=== PATIENT | male | born 1965 | race Caucasian/White ===

== ENCOUNTER 2016-10-29 12:18 | Inpatient (IN) | payer OTHER ==
[~2016-10-29] VITALS: Ht 182.9 cm; Wt 90.7 kg
--- NOTE | 2016-10-29 12:27 | NUR ---
PT TO ED FOR ABD PAIN SINCE WEDNESDAY MORNING, DENIES NAUSEA, VOMITING, REPORTING ONE EPISODE OF DIARRHEA "A FEW DAYS AGO". REPORTING NORMAL PO INTAKE, STATING ABD PAIN BEGAN TO FEEL BETTER THIS MORNING BUT IS NOW DESCRIBING PAIN "CRAMPY."
--- NOTE | 2016-10-29 12:31 | ED GI/GU/ABDOMINAL COMPLAINT ---
History of Present Illness General Chief Complaint: Abdominal Pain/Flank Pain Stated Complaint: R LOWER ABD PAIN SINCE 09/24 Source: patient, family, old records Exam Limitations: no limitations Vital Signs & Intake/Output Vital Signs & Intake/Output Vital Signs Date Time Temp Pulse Resp B/P B/P Pulse O2 O2 Flow FiO2 Mean Ox Delivery Rate 10/29 1447 100.4 85 18 117/71 99 10/29 1227 98.6 79 15 121/84 100 Room Air Allergies Coded Allergies: No Known Allergies (10/29/16) Reconcile Medications Meloxicam 7.5 MG TABLET 1 TAB PO DAILY PAIN (Reported) Pantoprazole Sodium 40 MG TABLET.DR 1 TAB PO DAILY GI (Reported) Triage Note: PT TO ED FOR ABD PAIN SINCE WEDNESDAY MORNING, DENIES NAUSEA, VOMITING, REPORTING ONE EPISODE OF DIARRHEA "A FEW DAYS AGO". REPORTING NORMAL PO INTAKE, STATING ABD PAIN BEGAN TO FEEL BETTER THIS MORNING BUT IS NOW DESCRIBING PAIN "CRAMPY." Triage Nurses Notes Reviewed? yes HPI: Patient is a 51-year-old male sent in by his primary doctor for evaluation of right lower quadrant pain. Pain present for approximately 3 days. Pain is a cramping sensation that worsens with coughing and sneezing. Pain is currently mild to moderate. Associated low-grade fevers. The patient had one episode of diarrhea 2 days ago. Normal bowel movement this morning. Patient last ate approximately 30 minutes prior to arrival, eating did not change the patient's pain. Patient says primary doctor, Dr. Solares, this morning [facility]. Patient denies vomiting, urinary symptoms. (CAMERON GARSIA) Past History Travel History Traveled to [place] past 21 day No Medical History Any Pertinent Medical History? see below for history Neurological: NONE EENT: NONE Cardiovascular: NONE Respiratory: NONE Gastrointestinal: GERD, internal hemorrhoid Hepatic: NONE Renal: NONE Musculoskeletal: ARTHRITIS Psychiatric: NONE Endocrine: NONE Blood Disorders: NONE Cancer(s): NONE Surgical History Surgical History: colonoscopy 07/2014, orthopedic surgery Psychosocial History What is your primary language Eritrean Tobacco Use: Never used ETOH Use: daily 1-2 drinks Illicit Drug Use: denies illicit drug use Family History Hx Contributory? No (CAMERON GARSIA) Review of Systems Review of Systems Constitutional: Reports: fever. Denies: chills. EENTM: Reports: no symptoms. Respiratory: Denies: cough, short of breath. Cardiovascular: Denies: chest pain. GI: Reports: see HPI. Genitourinary: Reports: no symptoms. Musculoskeletal: Denies: back pain. Skin: Reports: no symptoms. Neurological/Psychological: Reports: no symptoms. Hematologic/Endocrine: Reports: no symptoms. Immunologic/Allergic: Reports: no symptoms. (CAMERON GARSIA) Physical Exam Physical Exam General Appearance: well developed/nourished, alert, awake Head: atraumatic, normal appearance Eyes: Bilateral: normal appearance, PERRL, EOMI, normal inspection. Ears, Nose, Throat, Mouth: hearing grossly normal, moist mucous membrane Neck: normal inspection, supple, full range of motion Respiratory: normal breath sounds, no respiratory distress, lungs clear Cardiovascular: regular rate/rhythm Gastrointestinal: normal bowel sounds, soft, positive McBurney's point tenderness. Negative Loaiza's sign. Back: normal inspection, normal range of motion, no cva tenderness Extremities: normal range of motion Neurologic/Psych: no motor/sensory deficits, awake, alert, oriented x 3, normal gait, normal mood/affect Skin: intact, normal color, warm/dry Core Measures ACS in differential dx? No Severe Sepsis Present: No Septic Shock Present: No (CAMERON GARSIA) Progress Differential Diagnosis: appendicitis, biliary colic, cholecystitis, diverticulitis, gastritis, hepatitis, hernia, ischemic bowel, inflamm bowel dis, pancreatitis, prostatitis, perforated viscous, ureterolithiasis, urethritis, UTI /pyelo Plan of Care: Orders Procedure Date/time Status Add-on Test (ER Only) 10/29 1506 Active EKG 10/29 1506 Active TYPE & SCREEN (NOT X-MATCH) 10/29 1248 Complete URINALYSIS 10/29 1237 Complete PARTIAL THROMBOPLASTIN TIME 10/29 1237 Complete PROTHROMBIN TIME 10/29 1237 Complete LIPASE 10/29 1237 Complete COMPREHENSIVE METABOLIC PANEL 10/29 1237 Complete CBC WITHOUT DIFFERENTIAL 10/29 1237 Complete Laboratory Tests 10/29/16 1325: Urine Color YEL, Urine Clarity HAZY H, Urine pH 6.0, Ur Specific [place] 1.020, Urine Protein TRACE H, Urine Ketones TRACE H, Urine Nitrite NEG, Urine Bilirubin NEG, Urine Urobilinogen 0.2, Ur Leukocyte Esterase NEG, Ur Microscopic SEDIMENT EXAMINED, Urine RBC >75 H, Urine WBC RARE, Urine Mucus MOD H, Urine Hemoglobin LARGE H, Urine Glucose NEG 10/29/16 1248: Anion Gap 12, Estimated GFR > 60, BUN/Creatinine Ratio 17.3, Glucose 125 H, Calcium 8.8, Total Bilirubin 1.0, AST 17, ALT 31, Alkaline Phosphatase 54, Total Protein 6.9, Albumin 3.9, Globulin 3.0, Albumin/Globulin Ratio 1.3, Lipase 39, CBC w Diff NO MAN DIFF REQ, RBC 4.80, MCV 89.0, MCH 30.0, RDW 13.3, MPV 7.7, Gran % 82.8 H, Lymphocytes % 8.4 L, Monocytes % 7.1, Eosinophils % 1.4, Basophils % 0.3, Absolute Granulocytes 6.4, Absolute Lymphocytes 0.7 L, Absolute Monocytes 0.6, Absolute Eosinophils 0.1, Absolute Basophils 0, PUBS MCHC 33.8 10/29/16 1237: PT 12.5, INR 1.19 H, APTT 34 Patient declined pain medication or anti-nausea medication on initial exam 10/29/2016 1:39:53 PM: Patient resting comfortably. Results of labs discussed with patient. Patient awaiting CT scan. 10/29/2016 3:07:59 PM: Results discussed with radiology. IV Unasyn ordered. Results discussed with the patient. On-call surgery paged, Dr. Riggs presntly in the OR. Surgical JAI Dupont notified of patient and results. (MARKO VERGARA,CAMERON) Diagnostic Imaging: Viewed by Me: CT Scan. Discussed w/RAD: CT Scan. Radiology Impression: PATIENT: NEGRO JENNINGS PRESENT AGE: 51 PATIENT ACCOUNT NO: [id number] : 67 LOCATION: [facility] ORDERING PHYSICIAN: CAMERON VERGARA SERVICE DATE: 10/29/16 EXAM TYPE: CAT - CT ABD & PELVIS W IV CONTRAST EXAMINATION: CT ABDOMEN AND PELVIS WITH CONTRAST CLINICAL INFORMATION: Right lower quadrant pain and McBurney sign. COMPARISON: None. TECHNIQUE: Multidetector volumetric imaging was performed of the abdomen and pelvis before and after the IV administration of 94 mL of Optiray 320 intravenous contrast. No note is made of an adverse contrast reaction. Sagittal and coronal reformatted images were obtained on the technologist's workstation. DLP: 364 mGy-cm FINDINGS: LUNG BASES: Unremarkable. LIVER, GALLBLADDER, AND BILIARY TREE: Tiny, under 1 cm hypodensity identified superiorly in segment 4A of the left lobe of liver, too small to characterize, likely a tiny cyst. What appears to represent the gallbladder is severely contracted, without evidence of cholelithiasis or acute cholecystitis. PANCREAS: Unremarkable. SPLEEN: Unremarkable. ADRENAL GLANDS: Unremarkable. KIDNEYS AND URETERS: There are a few scattered low-density renal lesions, the largest in lower pole right kidney, with Hounsfield units 11-16. Otherwise unremarkable. BLADDER: Unremarkable. GASTROINTESTINAL TRACT: There is a small sliding hiatal hernia. The appendix is distended proximally greater than distally with exaggerated wall enhancement and moderate surrounding soft tissue stranding, most consistent with an acute appendicitis. There is no evidence of rupture at this point, however, the proximal appendix measures 1.8 cm in cross-section, thus immediate surgical consultation is recommended, if not already requested. The terminal ileum is collapsed, limiting evaluation, extending into the deep pelvis. ABDOMINAL WALL: Intact, no significant hernias. LYMPH NODES: No adenopathy. VASCULAR: Unremarkable. PELVIC VISCERA: Unremarkable, with the exception of the inflamed appendix as noted above. OSSEOUS STRUCTURES: Unremarkable. IMPRESSION: 1. Tiny, probable hepatic and multiple probable renal cysts. 2. Acute appendicitis. DICTATED BY: VIET REBOLLEDO MD DATE/TIME DICTATED:10/29/161438 TRUSS DESIGNER:JARRED DATE/TIME TRANSCRIBED:10/29/161438 CONFIDENTIAL, DO NOT COPY WITHOUT APPROPRIATE AUTHORIZATION. <Electronically signed in Other Vendor System> SIGNED BY: VIET REBOLLEDO MD 10/29/16 9778 Initial ED EKG: normal axis, normal intervals, normal p-waves, normal QRS complex, normal sinus rhythm, no ST T wave changes (CAMERON GARSIA) Departure Departure Disposition: STILL A PATIENT Condition: Stable Clinical Impression Primary Impression: Acute appendicitis Referrals: RYNE SOLARES MD (PCP/Family) Departure Forms: Customer Survey General Discharge Information OR/GI Note Spoke With: VIVIAN SHIPLEY,NURY Best. ED Treatment Decision: NEGRO JENNINGS requires urgent operative management or an emergent procedure that cannot be performed in the Emergency Room setting. Transport To: [facility] (CAMERON GARSIA) PA/HOP GROWER Co-Sign Statement Statement: ED Attending supervision documentation- [x] I saw and evaluated the patient. I have also reviewed all the pertinent lab results and diagnostic results. I agree with the findings and the plan of care as documented in the PA's/HOP GROWER's documentation. [] I have reviewed the ED Record and agree with the PA's/HOP GROWER's documentation. [] Additions or exceptions (if any) to the PAs/HOP GROWER's note and plan are summarized below: [] (JOSE NIEVES DO) [x] I saw and evaluated the patient. I have also reviewed all the pertinent lab results and diagnostic results. I agree with the findings and the plan of care as documented in the PA's/HOP GROWER's documentation. [] I have reviewed the ED Record and agree with the PA's/HOP GROWER's documentation. [] Additions or exceptions (if any) to the PAs/HOP GROWER's note and plan are summarized below: [] (JOSE NIEVES DO)
[2016-10-29] MEDS ORDERED: PANTOPRAZOLE SO40 M1 PO (12:52)
[2016-10-29] MEDS ORDERED: MELOXICAM7.5 M1 PO (12:52)
[2016-10-29 12:57] LABS: ABSOLUTE BASOPHIL COUNT 0 /CUMM (0.0-0.2); ABSOLUTE EOSINOPHIL COUNT 0.1 /CUMM (0.0-0.7); ABSOLUTE GRANULOCYTE CT 6.4 /CUMM (1.4-6.5); ABSOLUTE LYMPH COUNT 0.7 /CUMM (1.2-3.4); ABSOLUTE MONOCYTE COUNT 0.6 /CUMM (0.10-0.60); BASOPHIL % 0.3 % (0.0-2.0); EOSINOPHIL % 1.4 % (0-5); GRANULOCYTE % 82.8 % (42.2-75.2); HEMATOCRIT 42.7 % (42-52); MEAN CORPUSCULAR HGB CONC 33.8 G/DL (33.0-37.0); MEAN PLATELET VOLUME 7.7 FL (7.4-10.4); PLATELET COUNT 221 /CUMM (130-400); RBC DISTRIBUTION WIDTH 13.3 % (11.5-14.5); WHITE BLOOD CELL COUNT 7.8 /CUMM (4.8-10.8)
--- NOTE | 2016-10-29 13:26 | NUR ---
URINE TRIO SENT TO LAB.
--- NOTE | 2016-10-29 13:43 | NUR ---
PT RESTING ON STRETCHER, STATES THAT HE WENT TO HIS PMD DUE TO HE HAS BEEN HAVING RLQ PAIN SINCE WEDNESDAY, DENIES N/V/D/URINARY SYMPTOMS, COMPLAINS OF INTERMITTANT FEVERS . LBM TODAY AND NORMAL, LAST 8 ABOUT 1.5 HOURS AGO.
--- NOTE | 2016-10-29 13:49 | NUR ---
PT TO CT SCAN
--- NOTE | 2016-10-29 13:59 | NUR ---
PT RETURNED FROM CT SCAN.
--- NOTE | 2016-10-29 15:00 | NUR ---
UNASYN INFUSING PER EMADionicio. JAI ZHU AT BEDSIDE TO DISCUSS TEST RESULTS AND POC.
--- NOTE | 2016-10-29 15:22 | NUR ---
SURGICAL PA TO BEDSIDE FOR EVAL.
[2016-10-29 15:31] LABS: PT 12.5 SEC (9.4-12.5); PTT 34 SEC (25-37)
--- NOTE | 2016-10-29 15:45 | CT SCAN REPORT ---
EXAMINATION: CT ABDOMEN AND PELVIS WITH CONTRAST CLINICAL INFORMATION: Right lower quadrant pain and McBurney sign. COMPARISON: None. TECHNIQUE: Multidetector volumetric imaging was performed of the abdomen and pelvis before and after the IV administration of 94 mL of Optiray 320 intravenous contrast. No note is made of an adverse contrast reaction. Sagittal and coronal reformatted images were obtained on the technologist's workstation. DLP: 364 mGy-cm FINDINGS: LUNG BASES: Unremarkable. LIVER, GALLBLADDER, AND BILIARY TREE: Tiny, under 1 cm hypodensity identified superiorly in segment 4A of the left lobe of liver, too small to characterize, likely a tiny cyst. What appears to represent the gallbladder is severely contracted, without evidence of cholelithiasis or acute cholecystitis. PANCREAS: Unremarkable. SPLEEN: Unremarkable. ADRENAL GLANDS: Unremarkable. KIDNEYS AND URETERS: There are a few scattered low-density renal lesions, the largest in lower pole right kidney, with Hounsfield units 11-16. Otherwise unremarkable. BLADDER: Unremarkable. GASTROINTESTINAL TRACT: There is a small sliding hiatal hernia. The appendix is distended proximally greater than distally with exaggerated wall enhancement and moderate surrounding soft tissue stranding, most consistent with an acute appendicitis. There is no evidence of rupture at this point, however, the proximal appendix measures 1.8 cm in cross-section, thus immediate surgical consultation is recommended, if not already requested. The terminal ileum is collapsed, limiting evaluation, extending into the deep pelvis. ABDOMINAL WALL: Intact, no significant hernias. LYMPH NODES: No adenopathy. VASCULAR: Unremarkable. PELVIC VISCERA: Unremarkable, with the exception of the inflamed appendix as noted above. OSSEOUS STRUCTURES: Unremarkable. IMPRESSION: 1. Tiny, probable hepatic and multiple probable renal cysts. 2. Acute appendicitis.
--- NOTE | 2016-10-29 16:08 | NUR ---
PT TO OR AT THIS TIME.
--- NOTE | 2016-10-29 19:12 | Admission Core Measures ---
Admission Lab Results I reviewed the following labs: Laboratory Tests 10/29 10/29 1325 1248 Chemistry Sodium (137 - 145 mmol/L) 138 Potassium (3.5 - 5.1 mmol/L) 4.1 Chloride (98 - 107 mmol/L) 102 Carbon Dioxide (22 - 30 mmol/L) 24 Anion Gap (5 - 16) 12 BUN (9 - 20 mg/dL) 19 Creatinine (0.7 - 1.2 mg/dL) 1.1 Estimated GFR (>60 ml/min) > 60 BUN/Creatinine Ratio (7 - 25 %) 17.3 Glucose (65 - 99 mg/dL) 125 H Calcium (8.4 - 10.2 mg/dL) 8.8 Total Bilirubin (0.2 - 1.3 mg/dL) 1.0 AST (17 - 59 U/L) 17 ALT (21 - 72 U/L) 31 Alkaline Phosphatase (< 127 U/L) 54 Total Protein (6.3 - 8.2 g/dL) 6.9 Albumin (3.5 - 5.0 g/dL) 3.9 Globulin (1.9 - 4.2 gm/dL) 3.0 Albumin/Globulin Ratio (1.1 - 2.2 %) 1.3 Lipase (23 - 300 U/L) 39 Hematology CBC w Diff NO MAN DIFF REQ WBC (4.8 - 10.8 /CUMM) 7.8 RBC (4.70 - 6.10 /CUMM) 4.80 Hgb (14.0 - 18.0 G/DL) 14.4 Hct (42 - 52 %) 42.7 MCV (80.0 - 94.0 FL) 89.0 MCH (27.0 - 31.0 PG) 30.0 RDW (11.5 - 14.5 %) 13.3 Plt Count (130 - 400 /CUMM) 221 MPV (7.4 - 10.4 FL) 7.7 Gran % (42.2 - 75.2 %) 82.8 H Lymphocytes % (20.5 - 51.1 %) 8.4 L Monocytes % (1.7 - 9.3 %) 7.1 Eosinophils % (0 - 5 %) 1.4 Basophils % (0.0 - 2.0 %) 0.3 Absolute Granulocytes (1.4 - 6.5 /CUMM) 6.4 Absolute Lymphocytes (1.2 - 3.4 /CUMM) 0.7 L Absolute Monocytes (0.10 - 0.60 /CUMM) 0.6 Absolute Eosinophils (0.0 - 0.7 /CUMM) 0.1 Absolute Basophils (0.0 - 0.2 /CUMM) 0 PUBS MCHC (33.0 - 37.0 G/DL) 33.8 Urines Urine Color (YEL,AMB,STR) YEL Urine Clarity (CLEAR) HAZY H Urine pH (5.0 - 8.0) 6.0 Ur Specific [place] (1.001 - 1.035) 1.020 Urine Protein (NEG,<30 MG/DL) TRACE H Urine Ketones (NEG) TRACE H Urine Nitrite (NEG) NEG Urine Bilirubin (NEG) NEG Urine Urobilinogen (0.1 - 1.0 EU/dl) 0.2 Ur Leukocyte Esterase (NEG) NEG Ur Microscopic SEDIMENT EXAMINED Urine RBC (0 - 5 /HPF) >75 H Urine WBC (0 - 2 /HPF) RARE Urine Mucus (FEW,NONE) MOD H Urine Hemoglobin (NEG) LARGE H Urine Glucose (N MG/DL) NEG 10/29 1237 Coagulation PT (9.4 - 12.5 SEC) 12.5 INR (0.90 - 1.17) 1.19 H APTT (25 - 37 SEC) 34 Acute Coronary Syndrome Inclusion Criteria ACS Diagnosis No Inpatient Core Measures LDL Reminder: If No, please order W/I first 24hr of stay Congestive Heart Failure Inclusion Criteria CHF Diagnosis No Cerebrovascular accident Inclusion Criteria CVA/TIA Diagnosis No Inpatient Core Measures Bedside Swallow Eval Reminder: If BSE failed, place ST order Antithrombotic Reminder: Order Antithrombotic Medication by end of day 2 Antithrombotic Reminder: Document Reason Antithrombotic Not ordered by end of day 2 AFIB/Flutter Reminder: If Present, add to problem list AFIB/Flutter Reminder: Order Anticoag Medication for pts with AFIB/Flutter Atherosclerosis Reminder: If Present, add to problem list LDL Reminder: If No, please order W/I first 24hr of stay PT Order Reminder: If No, please order Venous thromboembolism Inpatient Core Measures VTE Risk Factors: Age > 40, [facility]/t No contraindications No VTE Pharm Prophylaxis d/t No contraindications Inclusion Criteria - Per Current guidelines, there needs to be overlap - treatment for the first 5 days of Warfarin therapy. - Parenteral Anticoagulation (IV or SC) needs to be - given along with Warfarin therapy. VTE Diagnosis No VTE Type NONE VTE Confirmed by (Test) NONE Problem List As ranked by this Provider includes Assessment & Plan 1. Acute appendicitis HOME MEDS Home Med List Meloxicam 7.5 MG TABLET 1 TAB PO DAILY PAIN (Reported) Pantoprazole Sodium 40 MG TABLET.DR 1 TAB PO DAILY GI (Reported)
--- NOTE | 2016-10-29 19:55 | History & Physical Pre-Op ---
General Information and HPI MD Statement: I have seen and personally examined NEGRO JENNINGS and documented this H&P. The patient is a 51 year old M who presented with a patient stated chief complaint of []. History of Present Illness: CC: abdominal pain HPI: 51-year-old healthy nonsmoker nondiabetic on medications for reflux and arthritis, who started having abdominal pain Wednesday 4 days ago he still went to work he was still eating good appetite but the pain persisted little worse last night into today constant mostly in the right lower quadrant, no significant nausea vomiting fever sweats chills no family history of acute appendicitis no recent antibiotics or flulike symptoms or sore throat no changes in bowel habits weight or appetite no constipation no dysuria pain does not radiate to his back. We associated symptom was he thinks that his reflux was worse during this time. I've reviewed the [facility]. No history of PUD, bleeding problems, heart disease or issues with anesthesia, for ortho. Family history negative for appendicitis. Allergies/Medications Allergies: Coded Allergies: No Known Allergies (10/29/16) Home Med list Meloxicam 7.5 MG TABLET 1 TAB PO DAILY PAIN (Reported) Pantoprazole Sodium 40 MG TABLET.DR 1 TAB PO DAILY GI (Reported) Past History Medical History Neurological: NONE EENT: NONE Cardiovascular: NONE Respiratory: NONE Gastrointestinal: GERD, internal hemorrhoid Hepatic: NONE Renal: NONE Musculoskeletal: ARTHRITIS Psychiatric: NONE Endocrine: NONE Blood Disorders: NONE Cancer(s): NONE Surgical History Pertinent Surgical History: colonoscopy 07/2014 orthopedic surgery Past Family/Social History Psychosocial History ETOH Use: daily 1-2 drinks Illicit Drug Use: denies illicit drug use Review of Systems Review of Systems: Constitutional: No fever, sweats or weight loss ENMT: No sore throat Cardiovascular: No chest pain, palpitations or leg swelling Respiratory: No shortness of breath, cough, or sputum or dyspnea on exertion GI: No GERD or bleeding per rectum : No dysuria or hematuria Musculoskeletal: No new muscle weakness, bone or joint pain Skin / Breast: No jaundice, rashes or itching Psychiatric: No history of drug or alcohol abuse no depression or anxiety Hematologic / lymphatic system: No problems with excessive bleeding, bruising, or blood clots Exam & Diagnostic Data Last 24 Hrs of Vital Signs/I&O I reviewed Vital Signs Date Time Temp Pulse Resp B/P B/P Pulse O2 O2 Flow FiO2 Mean Ox Delivery Rate 05/04 1447 100.4 85 18 117/71 99 10/29 1227 98.6 79 15 121/84 100 Room Air I reviewed Intake & Output 10/29 1600 10/29 0800 10/29 0000 Intake Total Output Total 120 Balance -120 Output, Urine 120 Patient 205 lb Weight Weight Reported by Patient Measurement Method Physical Exam: Constitutional: pleasant, no acute distress, conversant Eyes: sclera anicteric ENMT: ears and nose atraumatic, moist mucous membranes, good dentition, no lip lesions Neck: Supple, trachea is midline, no cervical or supraclavicular adenopathy and no palpable thyromegaly Cardiovascular: S1, S2, no murmurs, no peripheral edema Respiratory: clear to auscultation with normal respiratory effort and no intercostal retractions GI: abdomen soft, mildly tender lateral right lower quadrant no rebound nondistended, no palpable hepatosplenomegaly Extremities / lymphatics: symmetrically warm, free range of motion no peripheral edema, no cervical, supraclavicular, axillary, or inguinal adenopathy Musculoskeletal: Normal gait and station, no digital cyanosis, good muscle strength and tone no atrophy, motor grossly 5 out of 5 throughout Skin: no jaundice, no rashes warm, nondiaphoretic, no areas of erythema or induration Psychiatric: mood and affect are appropriate and alert and oriented to person place and time Last 24 Hrs of Labs/Brain: I reviewed Laboratory Tests 10/29/16 1325: Urine Color YEL, Urine Clarity HAZY H, Urine pH 6.0, Ur Specific [place] 1.020, Urine Protein TRACE H, Urine Ketones TRACE H, Urine Nitrite NEG, Urine Bilirubin NEG, Urine Urobilinogen 0.2, Ur Leukocyte Esterase NEG, Ur Microscopic SEDIMENT EXAMINED, Urine RBC >75 H, Urine WBC RARE, Urine Mucus MOD H, Urine Hemoglobin LARGE H, Urine Glucose NEG 10/29/16 1248: Anion Gap 12, Estimated GFR > 60, BUN/Creatinine Ratio 17.3, Glucose 125 H, Calcium 8.8, Total Bilirubin 1.0, AST 17, ALT 31, Alkaline Phosphatase 54, Total Protein 6.9, Albumin 3.9, Globulin 3.0, Albumin/Globulin Ratio 1.3, Lipase 39, CBC w Diff NO MAN DIFF REQ, RBC 4.80, MCV 89.0, MCH 30.0, RDW 13.3, MPV 7.7, Gran % 82.8 H, Lymphocytes % 8.4 L, Monocytes % 7.1, Eosinophils % 1.4, Basophils % 0.3, Absolute Granulocytes 6.4, Absolute Lymphocytes 0.7 L, Absolute Monocytes 0.6, Absolute Eosinophils 0.1, Absolute Basophils 0, PUBS MCHC 33.8 10/29/16 1237: PT 12.5, INR 1.19 H, APTT [address] scan on PACS myself there is an obvious thickened inflamed controlled retrocecal appendix Assessment/Plan Assessment/Plan: Impression is acute appendicitis. I explained to the patient that this is a potentially life-threatening infection for which I recommend an appendectomy. I feel antibiotics often alone are not enough and sometimes there is an occult malignancy. The severity of infection is related to the chance of perforation which usually increases after about 24 hours unfortunately the patient is presenting several days later, he may be perfed. Depending on what we find intraoperatively they may be discharged the same day or may need to stay for more IV antibiotics, at depends. I also discussed the possibility of a postoperative infection whether superficial or deep, this is also related to the initial severity and may also appear even a week later after an initial interval of well-being during the recovery. I explained the operation we usually do it laparoscopically rarely converting to open, depending on the amount of inflammation and whether the anatomy is very unusual all to avoid inadvertent injury to surrounding surrounding structures such as bowel and blood vessels and ureter. We also discussed the potential risks, benefits and alternatives to the procedure and surgery in general, issues that included but were not limited to, anesthetic risks hemorrhage requiring transfusion, the risk of transfusion itself, infection, heart attack, stroke, . As Ranked By This Provider Problem List: 1. Acute appendicitis
--- NOTE | 2016-10-29 20:02 | Operative Report ---
Operative/Inv Procedure Report Surgery Date: 10/29/16 Name of Procedure: Laparoscopic appendectomy Pre-Operative Diagnosis: Acute appendicitis Post-Operative Diagnosis: Same, walled off perforation Estimated Blood Loss: scant, less than 50ml Surgeon/Direct Service Worker: VIVIAN SHIPLEY,NURY VERGARA Anesthesia: general endotracheal tube Operative/Procedure Note Note: Patient was placed on the OR table in the supine position. After successful induction of general anesthesia the patient's abdomen was prepped clipped and draped in the usual sterile fashion The left arm was tucked. Local anesthetic was injected at the top of the umbilicus and entry into the peritoneum was established via the open Morgan technique: a one cm curved incision was made at the top of the umbilicus, the linea alba was secured between 2 pediatric Maria Eugenia clamps and incised vertically, 0-Vicryl stay sutures were placed on each side and then while retracting upwards, the peritoneal layer was entered sharply, then through that small opening, using an S retractor acting like a shoehorn, a 10 mm blunt trocar was inserted obliquely to the right and secured with the stay sutures. The gas was turned on to maximum of 15 mm, two 5 mm dissecting ports were then inserted, one suprapubic and one left lower quadrant, laterally. We used a local anesthetic needle to guide their trajectories, particular attention was given to avoid injury to the bowel, the bladder and the epigastric vessels. Then our attention was directed to the right lower quadrant, the small bowel was swept superiorly and medially, revealing the base of the cecum. We had to mobilize this because this was a retrocecal very inflamed curled appendix the tip was near the liver and at the apex of the crural it was perforated and it was walled off we suctioned throughout the case we got the white pus. This inflamed appendix was eventually mobilized by it first from the cecum at its which was the only accessible part initially. Using a combination of a [place] dissector, peanut dissector and a Debbie clamp, a window was developed between the mesoappendix and the base of the appendix. This window is then used to divide the appendix at the base with the 3 row Endo stapler longoria cartridge. The meso appendix was divided in part with the cautery and then eventually with the stapler as well, longoria cartridge also., Then the part that was still really stuck was as mentioned the apex of the curve for there was a walled off perforation in the tissues here were very thick and parts of very friable in other parts, care was taken to not inadvertently injure the ascending colon at the hepatic flexure. The appendix is lowered into an Endobag and set aside. The staple lines were checked for bleeding and small oozing was controlled with light zaps of the cautery. We deliberately irrigate the area including up by the liver and down in the pelvis, several rounds, checking the staple lines and each time to make sure that there is no ongoing bleeding. Next the instruments and the trochars and Endobag are removed, letting the gas out. We closed the umbilical fascial incision with a [id number] 0 vicryl suture, then the 3 skin incisions are closed with multiple interrupted subcuticular 4-0 Biosyn sutures, 3 for the umbilical, 1 each for the smaller ones, then covered with Mastisol, Steri-Strips and Band-Aids. EBL minimal Lap and sponge and sponge counts: correct Wound expectancy: infected IV fluids: crystalloid Complications: none Patient tolerated the procedure well was awakened and extubated and returned to the recovery room in satisfactory condition.
--- NOTE | 2016-10-29 20:43 | PN- General Surgery ---
Subjective Subjective: The patient was seen this evening postoperatively. He reports that his pain is under adequate control and he is only mildly nauseous. He has no other complaints at the current time and denies any chest pain or difficulty breathing. He hasn't voided postoperatively. Objective Vital Signs and I&Os Vital Signs Date Time Temp Pulse Resp B/P B/P Pulse O2 O2 Flow FiO2 Mean Ox Delivery Rate 10/29 1447 100.4 85 18 117/71 99 / 1227 98.6 79 15 121/84 100 Room Air Intake & Output 10/29 1600 10/29 0800 10/29 0000 10/28 1600 10/28 0800 10/28 0000 Intake Total Output Total 120 Balance -120 Output, Urine 120 Patient 205 lb Weight Weight Reported by Patient Measurement Method Physical Exam: Gen.: Sleepy but easily arousable and in no obvious distress Skin: Warm and dry Cardiac: S1-S2 regular Pulmonary: Bilateral breath sounds are equal with good exchange Abdomen: Soft, appropriate incisional tenderness, bowel sounds sluggish. Port sites are clean, dry, and intact Extremities: Bilateral lower extremities are warm without calf tenderness or significant edema. Assessment/Plan Assessment/Plan Assessment: 51-year-old male status post laparoscopic appendectomy for perforated appendicitis. The patient is progressing as expected and his pain is under adequate control. Plan: IV fluids overnight Advance diet as tolerated IV antibiotics PRN Pain medications, antiemetics, and antipyretics Out of bed ambulate Monitor for postoperative void GI and DVT prophylaxis Follow-up morning laboratory studies Incentive spirometry Core Measures/Miscellaneous Venous Thromboembolism VTE Risk Factors: Age > 40, Surgery VTE Contraindications: No Contraindications VTE Diagnosis: No VTE Type: NONE VTE Confirmed by (Test): NONE Beta Umu Is Beta Umu a Home Med? No Antibiotics Is Patient on Antibiotics? Yes If Yes: infection
--- NOTE | 2016-10-29 20:45 | NUR ---
NURSING NOTE: PT ARRIVED TO FLOOR FROM PACU VIA STRETCHER BY DISTRIBUTION. PT IS S/P LAP APPY, PT A&OX3, ON RA, NO DISTRESS NOTED, VSS, LOW-GRADE TEMP 99.2, PT C/O PAIN 3/10 IN ABD AND UP TO SHOULDERS. 1 PERCOCET TAB GIVEN. PT NOT COMPLAINING OF ANY NAUSEA OR VOMITING. PT STATES NOT PASSING GAS. PT HAS NOT VOIDED YET. 3 BANDAIDS TO ABD CDI, SKIN INTACT, NO BREAKDOWN NOTED. BOX LUNCH ORDERED. IV FLUIDS RUNNING AT 75 ML/HR. AWAIT FURTHER ORDERS FROM SURGICAL PA. PT SHOWN HOW TO USE CALL LIGHT SYSTEM. INFORMATION PACKET GIVEN. WILL CONTINUE TO MONITOR.
[2016-10-29 21:08] VITALS: BP 124/84
[2016-10-29 23:07] VITALS: BP 102/60
[2016-10-30 00:45] VITALS: BP 98/52
[2016-10-30 01:17] VITALS: BP 110/78
[2016-10-30 03:33] VITALS: BP 102/64
[2016-10-30 06:52] VITALS: BP 106/74
--- NOTE | 2016-10-30 07:37 | PN- General Surgery ---
See Addendum Subjective Subjective: Patient comfortable, pain is controlled, no nausea or vomiting, no fever or flulike illness. He has mild to moderate pain in the right side of the abdomen with palpation. He is able to void. It is not passing gas or having bowel movements yet. Objective Vital Signs and I&Os Vital Signs Date Time Temp Pulse Resp B/P B/P Pulse O2 O2 Flow FiO2 Mean Ox Delivery Rate 10/30 0652 97.8 72 20 106/74 95 Room Air 10/30 0333 98.8 76 18 102/64 95 Room Air 10/30 0117 110/78 10/30 0045 98.6 77 18 98/52 96 Room Air 10/29 2307 98.5 75 18 102/60 92 Room Air 10/29 2108 99.2 76 18 124/84 94 Room Air 10/29 1447 100.4 85 18 117/71 99 04 1227 98.6 79 15 121/84 100 Room Air Intake & Output 10/30 0800 10/30 0000 10/29 1600 10/29 0800 10/29 0000 03 1600 Intake Total 1140 75 Output Total 350 50 120 Balance 790 25 -120 Intake, IV 600 75 Intake, Oral 540 Output, Urine 350 50 120 Patient 200 lb 205 lb Weight Weight Reported by Patient Reported by Patient Measurement Method Physical Exam: Well-developed well-nourished no apparent distress. HEENT: Atraumatic, extraocular motion intact Neck: Supple, no lymphadenopathy Respiratory: No respiratory distress Abdomen: Moderate tenderness in the right side of the lower abdomen. Dressings clean dry and intact. Bowel sounds are hypoactive. Nondistended. Extremities: No edema, no calf pain Neuro: Alert and oriented x3 Psych: Mood affect normal, normal memory normal judgment. Skin: Warm and dry, no rash on exposed skin Assessment/Plan Assessment/Plan Assessment: 51-year-old male postop day 1 status post laparoscopic appendectomy for perforated appendicitis. Plan: Regular diet IV antibiotics PRN Pain medications, antiemetics, and antipyretics Out of bed ambulate GI and DVT prophylaxis Follow-up morning laboratory studies Incentive spirometry We will discuss with attending regarding length of stay due to perforated appendicitis patient is stable at this time, Core Measures/Miscellaneous Venous Thromboembolism VTE Risk Factors: Age > 40, Surgery VTE Contraindications: No Contraindications VTE Diagnosis: No VTE Type: NONE VTE Confirmed by (Test): NONE Beta Umu Is Beta Umu a Home Med? No Antibiotics Is Patient on Antibiotics? Yes If Yes: infection
[2016-10-30 07:52] LABS: ABSOLUTE BASOPHIL COUNT 0 /CUMM (0.0-0.2); ABSOLUTE EOSINOPHIL COUNT 0 /CUMM (0.0-0.7); ABSOLUTE GRANULOCYTE CT 6.3 /CUMM (1.4-6.5); ABSOLUTE LYMPH COUNT 0.4 /CUMM (1.2-3.4); ABSOLUTE MONOCYTE COUNT 0.5 /CUMM (0.10-0.60); BASOPHIL % 0 % (0.0-2.0); EOSINOPHIL % 0 % (0-5); HEMATOCRIT 39.1 % (42-52); MEAN CORPUSCULAR HGB 30.1 PG (27.0-31.0); MEAN CORPUSCULAR HGB CONC 33.8 G/DL (33.0-37.0); MEAN PLATELET VOLUME 8.1 FL (7.4-10.4); PLATELET COUNT 232 /CUMM (130-400); RBC DISTRIBUTION WIDTH 13.4 % (11.5-14.5); RED BLOOD CELL CT 4.39 /CUMM (4.70-6.10); WHITE BLOOD CELL COUNT 7.2 /CUMM (4.8-10.8)
[2016-10-30 09:02] LABS: GRANULOCYTE % 87.4 % (42.2-75.2)
[2016-10-30 11:17] VITALS: BP 100/70
[2016-10-30 14:35] VITALS: BP 100/68
[2016-10-30] MEDS ORDERED: AUGMENTIN 875-1 EACH PO (16:02)
[2016-10-30] MEDS ORDERED: PERCOCET 5-3251 EACH PO (16:02)
--- NOTE | 2016-10-30 16:13 | Patient Discharge Instructions ---
Discharge Instructions General Discharge Information You were seen/treated for: ACUTE APPENDICITIS WITH PERFORATION You had these procedures: LAPAROSCOPIC APPENDECTOMY Watch for these problems: INCREASING PAIN DESPITE THE USE OF PAIN MEDICATIONS, INCREASING REDNESS, WARMTH, DRAINAGE. BLOATING OF ABDOMEN. INABILTY TO URINATE OR MOVE BOWELS. FEVER GREATER THAN 101.5. Do not soak the wound: Yes No bath, but you may shower: Yes Other wound care: Keep wound clean and dry Special Instructions: Avoid bending and twisting, especially when lifting any objects. For the first two weeks post op, avoid lifting greater than 5 pounds. Splint your abdomen with a pillow if you feel discomfort when moving around or coughing. Diet Continue normal diet: Yes Recommended Diet: Regular Additional DIET Information: advance your diet slowly, eating too much food in the early part of your recovery may cause nausea and vomitting. As you tolerate your food, you may slowly increase the amount you are taking in. Activity Full Activity/No Limits: No Activity Self Limited: Yes Pounds, do NOT lift more than: 5 Additional ACTIVITY Info: As Dr. Riggs explained, awkward movements/positioning may irritate your incision and create a hernia in the area of your belly button. To avoid this, be aware of your body mechanics, try to keep abdominal muscles straight and non- twisted. Splinting your abdomen with a pillow is helpful when moving around to protect your abdomen as well as alleviate some discomfort. Acute Coronary Syndrome Inclusion Criteria At DC or during hospital stay patient has or had the following: ACS DIAGNOSIS No Discharge Core Measures Meds if any: Prescribed or Continued at Discharge Meds if any: NOT Prescribed or Continued at Discharge Congestive Heart Failure Inclusion Criteria At DC or during hospital stay patient has or had the following: CHF DIAGNOSIS No Discharge Core Measures Meds if any: Prescribed or Continued at Discharge Meds if any: NOT Prescribed or Continued at Discharge Cerebrovascular accident Inclusion Criteria At DC or during hospital stay patient has or had the following: CVA/TIA Diagnosis No Discharge Core Measures Meds if any: Prescribed or Continued at Discharge Meds if any: NOT Prescribed or Continued at Discharge Venous thromboembolism Inclusion Criteria VTE Diagnosis No VTE Type NONE VTE Confirmed by (Test) NONE Discharge Core Measures - Per Current guidelines, there needs to be overlap - treatment for the first 5 days of Warfarin therapy. - If discharged on Warfarin prior to 5 days of - overlap therapy, the patient will need to be - assessed for post discharge needs including - *Post discharge parental anticoagulation - *Warfarin and/or parental anticoagulation education - *Follow up date to check INR post discharge At least 5 days overlap therapy as Inpatient No Meds if any: Prescribed or Continued at Discharge Note: Overlap Therapy is Warfarin and Anticoagulant Meds if any: NOT Prescribed or Continued at Discharge
--- NOTE | 2016-11-23 11:08 | Discharge Summary ---
Visit Information Visit Dates Admission Date: 10/29/16 Discharge Date: 10/30/16 Hospital Course Course Attending Physician: NURY PARK MD Primary Care Physician[facility] Course: Patient underwent a laparoscopic appendectomy yesterday, the following morning he was afebrile vital signs stable not tachycardic no obvious hematomas at the incisions and he was tolerating diet so will be discharged home. Allergies: Coded Allergies: No Known Allergies (10/29/16) Disposition Summary Disposition Principal Diagnosis: Acute appendicitis Additional Diagnosis: None acute Discharge Disposition: home or self care Discharge Instructions General Discharge Information Code Status: Full Code Patient's Diet: Continue Patient's Activity: Avoid straining Follow-Up Instructions/Appts: Next week in the office or sooner if issues arise such as nausea vomiting fever or chills and new abdominal pain Medications at Discharge Discharge Medications: Stop taking the following medications: Meloxicam (Meloxicam) 7.5 MG TABLET ORAL DAILY Qty = 30 Continue taking these medications: Pantoprazole Sodium (Pantoprazole Sodium) 40 MG TABLET.DR 1 Tablet ORAL DAILY Qty = 60 Comments: NOT GIVEN IN HOSPITAL Start taking the following new medications: Amoxicillin/Potassium Clav (Augmentin 875-125 Tablet) 875 MG-125 MG TABLET 1 Tablet ORAL TWICE DAILY Qty = 20 No Refills Instructions: take with food, take with yogurt Comments: NOT GIVEN IN HOSPITAL Oxycodone HCl/Acetaminophen (Percocet 5-325 MG Tablet) 5 MG-325 MG TABLET 1 Tablet ORAL Q4-6H as needed for PAIN Qty = 18 No Refills Copies To: NURY PARK MD
== END 2016-10-30 20:35 | DRG 225 ==
LOC: ERH 12:18 → ER-OR 12:28 → 2NB 19:07 → PACUH 19:07 → ENRESERV 19:47 → 2NB 20:39
PROVIDERS: Physician Assistant; Physician Assistant Surgical; ADMIT Surgery
PROC: 0DTJ4ZZ Resection of Appendix, Percutaneous Endoscopic Approach (ICD-10-PCS; principal; 2016-10-29)
DX: K35.3 Acute appendicitis with localized peritonitis (principal); K21.9 Gastro-esophageal reflux disease without esophagitis
CPT/HCPCS: 2NBSP; 36415; 74177; 81001; 82436; 88304; 93005; 93010; 96374; J0131; J1170; J1644; J2250; J2405; J3010; J7042

== ENCOUNTER 2017-09-24 18:49 | Emergency (ER) | payer OTHER ==
[~2017-09-24] VITALS: Ht 182.9 cm; Wt 95.3 kg
[~2017-09-24 18:49] MED LIST: AUGMENTIN 875-1 EACH PO; MELOXICAM7.5 M1 PO; PANTOPRAZOLE SO40 M1 PO; PERCOCET 5-3251 EACH PO
[2017-09-24 18:53] VITALS: BP 143/88
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
[2017-09-24] MEDS ORDERED: DEXILANT60 M1 PO (19:51)
[2017-09-24] MEDS ORDERED: DICLOFENAC SODI50 M3 PO (19:52)
--- NOTE | 2017-09-24 20:03 | RADIOLOGY REPORT ---
EXAMINATION: XR NASAL BONES CLINICAL INFORMATION: Pain status post trauma COMPARISON: None TECHNIQUE: 3 views of the nasal bones were obtained. FINDINGS: There are no fractures or dislocations. No bone, joint or soft tissue abnormality is demonstrated. IMPRESSION: Unremarkable examination.
== END 2017-09-24 20:00 ==
LOC: ERH 18:49
DX: S00.33XA Contusion of nose, initial encounter (principal); W22.8XXA Striking against or struck by other objects, initial encounter; Y92.9 Unspecified place or not applicable; Y93.9 Activity, unspecified
CPT/HCPCS: 70160